=== PATIENT | male | born 1985 | race African-American/Black ===

== ENCOUNTER 2021-05-03 10:22 | Emergency (ER) | payer SELFPAY ==
[~2021-05-03] VITALS: Ht 177.8 cm; Wt 95.3 kg
--- NOTE | 2021-05-03 10:43 | PHYS DOC ---
Past Medical History Past Surgical History: No Surgical History General Adult EDM: Chief Complaint: ABDOMINAL PAIN HPI: HPI: Patient is a 35 year old male here with 3-day history of periumbilical and left lower quadrant abdominal pain, he has noted dark tarry stools as well as blood streaks in his stools. He reports increased frequency of stools, though he denies any diarrhea. He denies any nausea or vomiting. He denies fevers or chills. He denies urinary symptoms. He reports that several years ago he was told he had diverticulitis, diagnosed on CT scan at an ER in [place]. He never followed up with GI or primary care physician after that. He denies recent travel, hospitalization, denies recent antibiotic use. He denies any known sick contacts. He denies fevers, chills, anorexia. No previous abdominal surgeries. Review of Systems: Review of Systems: Constitutional: Denies fever or chills. [] Respiratory: Denies cough or shortness of breath. [] Cardiovascular: Denies chest pain or edema. [] GI: Abdominal pain, denies nausea vomiting, frequent stools, melena and hematochezia reported : Denies urinary symptoms Musculoskeletal: Denies back pain or joint pain. [] Integument: Denies rash. [] Neurologic: Denies headache, focal weakness or sensory changes. [] Psychiatric: Denies depression or anxiety. [] Heart Score: C/O Chest Pain: No Risk Factors: Risk Factors: DM, Current or recent (<one month) smoker, HTN, HLP, family history of CAD, obesity. Risk Scores: Score 0 - 3: 2.5% MACE over next 6 weeks - Discharge Home Score 4 - 6: 20.3% MACE over next 6 weeks - Admit for Clinical Observation Score 7 - 10: 72.7% MACE over next 6 weeks - Early Invasive Strategies Physical Exam: PE: Constitutional: Well developed, well nourished, no acute distress, non-toxic appearance. [] HENT: Normocephalic, atraumatic Eyes: Conjunctiva normal, no discharge. No icterus. Neck: Normal range of motion, no tenderness, supple, no stridor. [] Cardiovascular:Heart rate regular rhythm, +2 radial and +2 posterior tibial pulses bilaterally Lungs & Thorax: Bilateral breath sounds clear to auscultation [] Abdomen: Abdomen is soft, non-distended, normal bowel sounds, no palpable mass or organomegaly, no palpable pulsatile mass, mild LUQ, LLQ and periumbilical tenderness, mild voluntary guarding. No rebound tenderness. No CVA tenderness. Rectal: Normal rectal tone. No gross blood, stool is scant and brown in color. No gross melena. Heme + on occult blood testing. Skin: Warm, dry, no erythema, no rash. [] Back: No tenderness, no CVA tenderness. [] Extremities: No tenderness, no cyanosis, no clubbing, ROM intact, no edema. No calf tenderness. Neurologic: Alert and oriented X 3, normal motor function, normal sensory function, no focal deficits noted. [] Psychologic: Affect normal, judgement normal, mood normal. He is pleasant and cooperative. Current Patient Data: Vital Signs: Vital Signs Date Time Temp Pulse Resp B/P (MAP) Pulse Ox O2 Delivery O2 Flow Rate FiO2 05/03/21 10:35 97.5 65 10 106/67 (80) 96 Room Air 97.5 EKG: EKG: [] Radiology/Procedures: Radiology/Procedures: IMAGING REPORT Signed PATIENT: SHANIKA PEREZ ACCOUNT: [id number] : 1985 LOCATION: ER AGE: 35 SEX: M EXAM STATUS: REG ER ORD. PHYSICIAN: EVELYN RUSHING DO REASON: lower abdominal pain, blood in stool PROCEDURE: CT ABD PELV W/ IV CONTRST ONLY CT ABDOMEN+PELVIS W History: Lower abdominal pain, blood in stool Comparison: None. Technique: CT of the abdomen and pelvis with intravenous contrast. Findings: The liver, gallbladder, pancreas, spleen, and adrenal glands are unremarkable. Kidneys are within normal limits. No hydronephrosis or nephrolithiasis. The bladder is decompressed without focal abnormality. The prostate is normal. Mild gastric wall thickening likely due to under distention. The small bowel is within normal limits. The appendix is normal. There is a prominent 3.8 cm diameter cecal lipoma. Mild colonic diverticulosis. The descending and sigmoid colon are relatively decompressed with subtle smooth wall thickening. No pericolonic inflammatory fat stranding. Vasculature is within normal limits. No adenopathy. No free air or free fluid. Soft tissues are within normal limits. Degenerative disc disease at L5-S1. Impression: 1. Mild wall thickening of the descending colon is likely due to underdistention, however cannot exclude colitis. Recommend endoscopy for further evaluation. 2. Prominent 3.8 cm cecal lipoma. This could be further evaluated during endoscopy. 3. Mild gastric wall thickening is also likely due to underdistention. ------ Exposure: One or more of the following individualized dose reduction techniques were utilized for this examination: 1. Automated exposure control 2. Adjustment of the mA and/or kV according to patient size 3. Use of iterative reconstruction technique. Electronically signed by: Lalo Solorzano MD (05/03/2021 12:22 PM) [facility] DICTATED and SIGNED BY: LALO SOLORZANO MD DATE: 05/03/21 [id number] 0 Course & Med Decision Making: Course & Med Decision Making Pertinent Labs and Imaging studies reviewed. (See chart for details) The patient is given IV fluids. He declined pain medicines or nausea medicine at this time. He has findings of colitis on CT. He is heme positive stool, though no evidence of anemia. No evidence of hemodynamic compromise. I discussed the findings, differential diagnosis and plan of care with the patient. He has a nonsurgical abdominal exam. He will be treated empirically for colitis. I gave him a prescription for pain medicine and antiemetics to use as needed. I strongly encouraged him to follow-up with a primary care physician, he reports that he is establishing care with a new primary care doctor in [place], [place] soon. I gave him the number for outpatient GI services as well. Strict return precautions are given. He verbalized understanding. Ben Disclaimer: Ben Disclaimer: This electronic medical record was generated, in whole or in part, using a voice recognition dictation system. Departure Departure Impression: Primary Impression: Acute colitis Additional Impressions: Lipoma of colon Guaiac positive stools Generalized abdominal pain Referrals: NO PCP (PCP) GENNY BAPTISTE MD Patient Instructions: Bloody Stools, Colitis Additional Instructions: Take the medications as needed/as directed for pain and/or nausea. Take the full course of antibiotics. Return for more severe pain, fever 100.4 or higher, uncontrolled vomiting, dehydration, if you notice increase or heavy bleeding or any other concerns. Please follow-up with not only primary care doctor but also with outpatient GI. You will likely require a colonoscopy for further evaluation of your colitis, also to ascertain any underlying issues otherwise with your colon. Scripts Metronidazole (METRONIDAZOLE) 500 Mg Tablet 1 TAB PO TID for 7 Days, #21 TAB 0 Refills Prov: EVELYN RUSHING DO 05/03/21 Ciprofloxacin Hcl (CIPRO) 500 Mg Tablet 1 TAB PO BID for 7 Days, #14 TAB 0 Refills Prov: EVELYN RUSHING DO 05/03/21 Ondansetron Hcl (ONDANSETRON HCL) 4 Mg Tablet 1 TAB PO PRN Q6HRS for vomiting, #20 TAB 1 Refill Prov: EVELYN RUSHING DO 05/03/21 Hydrocodone Bit/Acetaminophen (HYDROCODONE-APAP 5-325 ) 1 Tab Tablet 1 TAB PO PRN Q6HRS PRN for PAIN, #20 TAB 0 Refills Prov: EVELYN RUSHING DO 05/03/21 EVELYN RUSHING DO May 03, 2021 10:43
[2021-05-03] MEDS ORDERED: IV NORMAL SALINE 1000ML BAG 1,000 ML IV ONE (11:00)
[2021-05-03 11:16] LABS: BASO # 0.1 x10^3/uL (0.0-0.2); BASO % 1 % (0-3); EOS # 0.2 x10^3/uL (0.0-0.7); EOS % 2 % (0-3); HEMATOCRIT 41.9 % (39.0-53.0); HEMOGLOBIN 14.1 g/dL (13.0-17.5); LYMPH # 2.4 x10^3/uL (1.0-4.8); LYMPH % 29 % (24-48); MEAN CORPUSCULAR HEMOGLOBIN 30 pg (25-35); MEAN CORPUSCULAR HGB CONC 34 g/dL (31-37); MEAN CORPUSCULAR VOLUME 88 fL (79-100); MONO # 0.7 x10^3/uL (0.0-1.1); MONO % 9 % (0-9); NEUT # 4.9 x10^3/uL (1.8-7.7); NEUT % 59 % (31-73); PLATELET COUNT 252 x10^3/uL (140-400); RED BLOOD COUNT 4.77 x10^6/uL (4.30-5.70); RED CELL DISTRIBUTION WIDTH 14.5 % (11.5-14.5); WHITE BLOOD COUNT 8.3 x10^3/uL (4.0-11.0)
[2021-05-03 11:23] LABS: CREATININE 1.2 mg/dL (0.7-1.3); GFR 82.9; POTASSIUM 4.3 mmol/L (3.5-5.1)
[2021-05-03 11:29] LABS: ALBUMIN 3.8 g/dL (3.4-5.0); TOTAL BILIRUBIN 0.3 mg/dL (0.2-1.0); TOTAL PROTEIN 7.5 g/dL (6.4-8.2)
[2021-05-03 11:35] LABS: FECAL OB PT POSITIVE (NEG)
[2021-05-03] MEDS ORDERED: IOHEXOL 300 MG/ML 100ML VIAL. IV ONE (11:45)
[2021-05-03 11:59] LABS: BILIRUBIN,URINE NEGATIVE (NEG); CLARITY,URINE CLEAR; COLOR,URINE YELLOW; NITRITE,URINE NEGATIVE (NEG); PH,URINE 5.5 (<5.0-8.0); PROTEIN,URINE NEGATIVE (NEG-TRACE); UROBILINOGEN,URINE 0.2 mg/dL (0.2 mg/dL)
[2021-05-03] MEDS ORDERED: CONTRAST GIVEN. MC PRN (12:00)
[2021-05-03 12:11] LABS: BACTERIA,URINE 0 /HPF (0-FEW); RBC,URINE 0 /HPF (0-2); WBC,URINE 0 /HPF (0-4)
--- NOTE | 2021-05-03 12:25 | RAD ---
CT ABDOMEN+PELVIS W History: Lower abdominal pain, blood in stool Comparison: None. Technique: CT of the abdomen and pelvis with intravenous contrast. Findings: The liver, gallbladder, pancreas, spleen, and adrenal glands are unremarkable. Kidneys are within nor mal limits. No hydronephrosis or nephrolithiasis. The bladder is decompressed without focal abnormali ty. The prostate is normal. Mild gastric wall thickening likely due to under distention. The small bowel is within normal limits. The appendix is normal. There is a prominent 3.8 cm diameter cecal lipoma. Mild colonic diverticulos is. The descending and sigmoid colon are relatively decompressed with subtle smooth wall thickening. No pericolonic inflammatory fat stranding. Vasculature is within normal limits. No adenopathy. No free air or free fluid. Soft tissues are withi n normal limits. Degenerative disc disease at L5-S1. Impression: 1. Mild wall thickening of the descending colon is likely due to underdistention, however cannot exc lude colitis. Recommend endoscopy for further evaluation. 2. Prominent 3.8 cm cecal lipoma. This could be further evaluated during endoscopy. 3. Mild gastric wall thickening is also likely due to underdistention. ------ Exposure: One or more of the following individualized dose reduction techniques were utilized for thi s examination: 1. Automated exposure control 2. Adjustment of the mA and/or kV according to patient size 3. Use of iterative reconstruction technique. Electronically signed by: Lalo Hector MD (05/03/2021 12:22 PM) [facility]
[2021-05-03] MEDS ORDERED: HYDR-2761 PO (13:25)
[2021-05-03] MEDS ORDERED: METR-34 PO (13:25)
[2021-05-03] MEDS ORDERED: CIPR500T94 PO (13:25)
[2021-05-03] MEDS ORDERED: ONDA-84 PO (13:25)
[2021-05-03 14:00] VITALS: BP 99/55
== END 2021-05-03 14:14 | disposition home or self-care (01) ==
LOC: ER 10:22
DX: K52.9 Noninfective gastroenteritis and colitis, unspecified (principal); M51.37 Other intervertebral disc degeneration, lumbosacral region; D17.5 Benign lipomatous neoplasm of intra-abdominal organs; R19.5 Other fecal abnormalities
CPT/HCPCS: 36415; 74177; 80053; 81001; 82274; 83690; 85025; 96360; 99285; J7030; Q9967